=== PATIENT | male | born 1935 | race Caucasian/White ===

== ENCOUNTER 2017-11-26 15:45 | Inpatient (IN) ==
[2017-11-26] MEDS ORDERED: SODIUM CHLORIDE 0.9% 1,000 ML IV STA (16:01)
[2017-11-26 16:33] LABS: Basophils % 0.1 % (0.0-0.8); Hematocrit 48.5 VOL% (42.0-52.0); Hemoglobin 16.7 GM/DL (14.0-18.0); Immature Granulocytes % 0.3 %; Immature Granulocytes Absolute 0.03 #; Lymphocytes # 1.4 10*3/uL (1.4-4.0); Lymphocytes % 15.6 % (21.2-54.2); Mean Corpuscular HGB Conc 34.4 GM/DL (32-36); Mean Corpuscular Hemoglobin 32 PG (27-34); Mean Corpuscular Volume 93.4 FL (87-102); Mean Platelet Volume 12.2 FL (9.6-12.0); Monocytes # 0.9 10*3/uL (0.11-0.8); Monocytes % 10.4 % (1.7-12.7); Neutrophils # 6.6 10*3/uL (1.4-7.4); Neutrophils % 73.6 % (38.7-73.9); Platelet Count 111 T/CUMM (130-400); Red Blood Count 5.19 MC/CUMM (3.8-5.5); Red Cell Distribution Width 12.3 % (9.3-17.3)
[2017-11-26 16:46] LABS: PT Patient Result 10.9 SECS
[2017-11-26 16:49] LABS: Lactic Acid 1.9 MMOL/L (0.4-2.0)
[2017-11-26 17:01] LABS: Albumin 3.5 G/DL (3.4-5.0); Bilirubin,Total 0.7 MG/DL (0.2-1.0); Calcium 8.7 MG/DL (8.5-10.1); Osmolality,Calculated 284.3 MOS/KG (273-304); Potassium 3.6 MMOL/L (3.5-5.1); Total Protein 6.8 G/DL (6.4-8.3)
[2017-11-26] MEDS ORDERED: METOPROLOL TARTRATE 5 MG/5 ML VIAL IV STA (18:52)
[2017-11-26] MEDS ORDERED: METOPROLOL TARTRATE 5 MG/5 ML VIAL IV ONE (18:54)
[2017-11-26 20:21] LABS: Apearance,Urine CLEAR (Clear); Bilirubin,Urine Negative (Negative); Blood, Urine Negative (Negative); Glucose,Urine (UA) 50 mg/dL (Negative); Ketones,Urine Negative (Negative); Nitrite,Urine Negative (Negative); Protein,Urine 30 MG/DL; Urine Color Yellow (Yellow); Urine Specific Gravity 1.029 (1.001-1.035); Urine Urobilinogen < 2.0 EU/DL (0.2-1.0); WBC,Urine <1 /HPF (0-6)
[2017-11-26] MEDS ORDERED: ONDANSETRON 4 MG/2 ML VIAL IV PRN (20:21)
[2017-11-26] MEDS ORDERED: ACETAMINOPHEN 325 MG TABLET PO PRN (20:21)
[2017-11-26] MEDS ORDERED: MORPHINE 2 MG/1 ML SYRINGE IV PRN (20:21)
[2017-11-26] MEDS ORDERED: hydrALAZINE 20 MG/1 ML VIAL IV PRN (20:21)
[2017-11-26] MEDS: SODIUM CHLORIDE 0.9% 1,000 ML IV SCH (20:56)
[2017-11-27] MEDS ORDERED: FUROSEMIDE 20 MG TABLET PO PRN (00:19)
[2017-11-27] MEDS ORDERED: hydrOXYzine HCL 25 MG TABLET PO SCH (00:30)
[2017-11-27 07:23] LABS: Basophils % 0.1 % (0.0-0.8); Eosinophils % 0.4 % (0.00-10.9); Hematocrit 44.7 VOL% (42.0-52.0); Hemoglobin 15.8 GM/DL (14.0-18.0); Immature Granulocytes % 0.1 %; Immature Granulocytes Absolute 0.01 #; Lymphocytes # 2.1 10*3/uL (1.4-4.0); Lymphocytes % 29.4 % (21.2-54.2); Mean Corpuscular HGB Conc 35.3 GM/DL (32-36); Mean Corpuscular Hemoglobin 33 PG (27-34); Mean Corpuscular Volume 93.9 FL (87-102); Mean Platelet Volume 11.7 FL (9.6-12.0); Monocytes # 0.8 10*3/uL (0.11-0.8); Neutrophils # 4.2 10*3/uL (1.4-7.4); Platelet Count 101 T/CUMM (130-400); Red Blood Count 4.76 MC/CUMM (3.8-5.5); Red Cell Distribution Width 12.8 % (9.3-17.3); White Blood Count 7.2 T/CUMM (4-12)
[2017-11-27] MEDS ORDERED: CARVEDILOL 3.125 MG TABLET PO SCH (08:00)
[2017-11-27 08:03] LABS: Albumin 3.2 G/DL (3.4-5.0); Bilirubin,Total 0.8 MG/DL (0.2-1.0); Calcium 8.4 MG/DL (8.5-10.1); Osmolality,Calculated 284.1 MOS/KG (273-304); Potassium 4.5 MMOL/L (3.5-5.1); Total Protein 6.1 G/DL (6.4-8.3)
[2017-11-27] MEDS ORDERED: PANTOPRAZOLE 40 MG VIAL IV SCH (09:00)
[2017-11-27] MEDS: SODIUM CHLORIDE 0.9% 1,000 ML IV SCH (10:46)
[2017-11-27 16:19] VITALS: BP 114/69
== END 2017-11-27 17:25 | disposition home or self-care (01) | DRG 390 ==
LOC: EDUNIT# → EDBD → N.ED 15:45 → N.EDINP 18:56 → N.3E 19:39
PROVIDERS: ADMIT Surgery; ATTEND Surgery